=== PATIENT | male | born 1940 | race Two or more races ===

== ENCOUNTER 2021-04-02 20:36 | Emergency (ER) | payer OTHER ==
[~2021-04-02] VITALS: Ht 167.6 cm; Wt 63.5 kg
[2021-04-02] MEDS ORDERED: ATORVASTATIN CA10 MG (20:40)
[2021-04-02] MEDS ORDERED: ZESTRIL10 M1 (20:40)
[2021-04-02] MEDS ORDERED: CHILDREN'S ASPI81 MG (20:41)
[2021-04-02] MEDS ORDERED: PEPCID AC10 MG (20:41)
[2021-04-03] MEDS ORDERED: MECLIZINE HCL25 MG PO (00:41)
== END 2021-04-03 00:54 | disposition home or self-care (01) ==
LOC: ER 20:36
DX: R42 Dizziness and giddiness (principal)